=== PATIENT | male | born 1975 | race Caucasian/White ===

== ENCOUNTER 2016-11-23 19:02 | Inpatient (IN) ==
[2016-11-23 19:34] LABS: MANUAL DIFF NEEDED? NO
[2016-11-23 19:37] LABS: BASO% 0.2 % (0.0-0.8); EOS# 0.04 X1000 (0.0-0.7); EOS% 0.3 % (0.0-10.0); HEMATOCRIT 41.8 % (42.0-52.0); HEMOGLOBIN 14.8 g/dL (14.0-18.0); LYMPH# 1.91 X1000 (1.2-3.4); LYMPH% 15.9 % (20.5-51.1); MCH 31.6 PG (27-31); MCHC 35.4 g/dL (33-37); MCV 89.1 FL (81-99); MONO# 0.81 X1000 (0.11-0.59); MONO% 6.8 % (1.7-9.3); MPV 9.6 FL (7.4-10.4); NEUT% 76.8 % (42.2-75.2); PLT 259 X1000 (130-400); RBC 4.69 XMIL (4.7-6.1)
[2016-11-23] MEDS ORDERED: MORPHINE IV ONE ×2 (20:46→21:53)
[2016-11-23] MEDS ORDERED: NS 1,000 ML IV ONE ×2 (20:46→21:53)
[2016-11-23] MEDS ORDERED: ZOFRAN IV ONE ×2 (20:46→21:53)
[2016-11-23 20:49] LABS: AGAP 16; ALBUMIN 4.4 g/dL (3.5-5.0); ALKALINE PHOSPHATASE 53 U/L (32-122); AMYLASE 260 U/L (20-200); BUN 17 mg/dL (8-22); CALCIUM 9.7 mg/dL (8.8-10.2); CHLORIDE 96 mmol/L (98-107); COSMO 276; GOT 19 U/L (10-34); GPT 28 U/L (10-44); LIPASE 607 U/L (13-60); POTASSIUM 4.1 mmol/L (3.5-5.1); SODIUM 137 mmol/L (136-145); TCO2 25 mmol/L (25-35); TOTAL BILIRUBIN 0.55 mg/dL (0.20-1.00); TOTAL PROTEIN 7.8 g/dL (6.3-8.3)
--- NOTE | 2016-11-23 20:54 | PROVIDER DOCUMENTATION ---
HPI-Abdominal Pain/GI Problem - General Chief Complaint: Abdominal Pain Stated Complaint: ABD PAIN X 1 WEEK, VOMITING Time Seen by Provider: 11/23/16 20:47 Source: patient, family Allergies/Adverse Reactions: Patient Allergies Allergy/AdvReac Type Severity Reaction Status Date / Time cephalexin [From Keflex] AdvReac Unknown Verified 11/23/16 20:38 Home Medications: Home Medication List Medication Instructions Recorded Confirmed Last Taken Type NK [No Home Medications] 11/23/16 11/23/16 Unknown History - History of Present Illness-ABD Nature of Presenting Problems: 41 yom C/O Abd pain and N/V for 8 days. Constipation. Continues to get worse. Pt unable to hardly eat or drink anything for about 5 days. the pain is generalized. Abdominal Pain Onset Location: reports: generalized abdomen Pain Radiation: reports: no radiation Quality of Pain: reports: sharp Severity in ED: reports: moderate Onset/Duration: reports: last week Timing: reports: still present, getting worse Activities at Onset: reports: none Associated Symptoms: reports: constipation, nausea, vomiting Last BM: 1 week ago Dark Stools Present?: reports: none noticed Rectal Bleeding: reports: none # of Diarrhea Episodes: 0 Rectal Pain: reports: none # of Vomiting Episodes: 8 Emesis Description: reports: none Bruising or Bleeding Gums?: No Similar Symptoms Previously?: No Recently seen or treated by another doctor?: No Review of Systems - Adult - REVIEW OF SYSTEMS - ADULT Constitutional: reports: see HPI Eyes: reports: no symptoms reported Ears, Nose, Mouth & Throat: reports: no symptoms reported Cardiovascular: reports: no symptoms reported Respiratory: reports: no symptoms reported Gastrointestinal: reports: see HPI, abdominal pain, constipation, nausea, vomiting Genitourinary: reports: no symptoms reported Musculoskeletal: reports: no symptoms reported Integumentary: reports: no symptoms reported Neurological: reports: no symptoms reported Psychiatric: reports: no symptoms reported Endocrine: reports: no symptoms reported Hematologic/Lymphatic: reports: no symptoms reported Allergic/Immunologic: reports: no symptoms reported All Other Systems: Reviewed and Negative Past History - Adult - PAST MEDICAL HISTORY-ADULT Review of Records: reports: Old Records Reviewed, Nursing Assessment Review, Medications Reviewed, Social history reviewed & non-contributory. Physical Exam-General - PHYSICAL EXAM-ADULT Initial Vital Signs Reviewed: Yes - CONSTITUTIONAL General Appearance: appears well, alert, mild distress (due to pain) - EYES Eyes: PERRL/EOMI, pink conjunctivae - HEAD, EARS, NOSE, MOUTH & THROAT HENMT: normocephalic/atraumatic, moist mucous membranes, normal ENT inspection - NECK Neck: non-tender, full range of motion, supple, normal inspection - RESPIRATORY Respiratory: chest non-tender, lungs clear, normal breath sounds, no pleuratic chest pain, no respiratory distress, no accessory muscle use - CARDIOVASCULAR Cardiovascular: normal peripheral pulses, regular rate, rhythm, no edema, no gallop, no JVD, no murmur - GASTROINTESTINAL (ABDOMEN) Abdominal Exam: normal bowel sounds, soft, no organomegaly, no pulsatile mass, guarding, tenderness. negative: hepatomegaly, spleenomegaly, McBurney's point tenderness, Jones's sign, obturator sign, prominent aortic pulsations, psoas, Rovsing's sign - LYMPHATIC Lymphatic: no adenopathy - MUSCULOSKELETAL Back Exam: normal inspection, no CVA tenderness, no vertebral tenderness Extremity: normal range of motion, non-tender, normal gait, normal inspection, no pedal edema, no calf tenderness, normal capillary refill, pelvis stable Peripheral Pulses: radial (R): 2+, radial (L): 2+, dorsalis-pedis (R): 2+, dorsalis-pedis (L): 2+ - SKIN Integumentary: normal color, normal turgor, warm/dry - NEUROLOGIC Neurologic: grossly normal - PSYCHIATRIC Psych/Mental Status: oriented x 3 Progress - PLAN OF CARE/RESULTS Progress/Plan/Lab Results: Vital Signs - 8 hr 11/23/16 19:15 Temperature 98.1 F Pulse Rate 86 Respiratory Rate 20 Blood Pressure 154/94 O2 Sat by Pulse Oximetry 100 Laboratory Results - last 24 hr 11/23/16 19:21 WBC 11.99 H RBC 4.69 L Hgb 14.8 Hct 41.8 L MCV 89.1 MCH 31.6 H MCHC 35.4 RDW Std Deviation 12.0 Plt Count 259 MPV 9.6 Immature Gran % (Auto) 0.0 Neut % (Auto) 76.8 H Lymph % (Auto) 15.9 L Phillips % (Auto) 6.8 Eos % (Auto) 0.3 Baso % (Auto) 0.2 Immature Gran # (Auto) 0.00 Neut # (Auto) 9.21 H Lymph # (Auto) 1.91 Phillips # (Auto) 0.81 H Eos # (Auto) 0.04 Baso # (Auto) 0.02 Orders Category Date Time Status Saline Loc NOW Care 11/23/16 20:46 Active NPO Diet 11/23/16 19:[address] ABD/PELVIS W/ IV CONT ONLY [CT] Stat Exams 11/23/16 20:45 Ordered AMYLASE [CHEM] Stat Lab 11/23/16 19:21 Received CBC WITH ELECTRONIC DIFF [HEME] Stat Lab 11/23/16 19:21 Completed COMPREHENSIVE METABOLIC PANEL [CHEM] Stat Lab 11/23/16 19:21 Received LIPASE [CHEM] Stat Lab 11/23/16 19:21 Received URINALYSIS W/POSS RFLX CULT-1 [URINALYSIS] Stat Lab 11/23/16 19:28 Uncollected 0.9% Sodium Chloride Inj [Ns] 1,000 ml Med 11/23/16 20:46 Active IV 999 mls/hr Morphine Med 11/23/16 20:46 Discontinued 4 mg IV NOW ONE Ondansetron [Zofran] Med 11/23/16 20:46 Discontinued 4 mg IV NOW ONE Result Diagrams: 11/23/16 19:21 11/23/16 19:21 - CT/MRI 1 CT Study: Abdomen Impression: See EMR Report (1. Findings likely due to duodenitis possible with and ulcer or less likely due to focal pancreatitis involving the head of the pancreas. 2 Mild fatty infiltration of the liver. 3.Constipation 4. 5x9mm nonspecific nodule in the left lower lobe.) - CONSULTS/PCP/HOSPITALIST Notification #1 *Consult/PCP/Hospitalist*: A[place]oto Time Discussed: 21:55 Consult Disposition: Will see in ED, Admit Departure - Departure Date of Disposition Decision: 11/23/16 Time of Disposition Decision: 21:55 DIAGNOSIS: Pancreatitis Qualifiers: Chronicity: acute Pancreatitis type: alcohol induced Acute pancreatitis complication: unspecified Qualified Code(s): K85.20 - Alcohol induced acute pancreatitis without necrosis or infection Disposition: ADMITTED INPATIENT 09 Certified Medical Emergency: Emergent Condition: Stable Referrals and Follow-Ups: None,PCP [Primary Care Provider] - - Critical Care Note This patient required my direct & personal management of CC.: No Attestation - Physician/ TALITA Attestation Patient care was provided by Advanced Practice Provider:: Yes Advanced Practice Provider:: Maicol Martines (Dr. Jones reviewed labs and aware of patient) Advanced Practice Provider documentation review:: The Mid-level provider documentation, treatment plan and medical decision making was reviewed by the physician who agrees with all treatment and medical decision making by the MLP.
[2016-11-23 21:18] LABS: URINE CULTURE NEEDED? NO; URINE MICRO REVIEW NEEDED? NO; URINE SOURCE CLEAN CATCH
--- NOTE | 2016-11-23 21:28 | Diag Imaging Result Doc PS360 ---
EXAM: CT abdomen and pelvis with intravenous contrast HISTORY: Abdomen pain TECHNIQUE: Dose reduction protocol COMPARISON: None. FINDINGS: There is thickening to the duodenum and there are adjacent inflammatory changes. 1 cm hypodense area in the head of the pancreas. No pancreatic calcifications. No other pancreatic abnormality. Normal spleen. Mild fatty infiltration of the liver. Normal gallbladder and adrenal glands. Normal enhancement of the kidneys. No hydronephrosis. Normal aorta. No bowel obstruction. Normal appendix. No abscess. There is stool throughout the colon. The urinary bladder is moderately distended and appears normal. The prostate is not enlarged. IMPRESSION: 1.Findings likely due to duodenitis possibly with an ulcer or less likely due to focal pancreatitis involving the head of the pancreas. 2.Mild fatty infiltration of the liver 3.Constipation 4.5 x 9 mm nonspecific nodule in the left lower lobe. Electronically signed by Esdras Claire 11/23/2016 9:26 PM
[2016-11-23 21:39] LABS: UR EPITHELIAL CELLS <10 /HPF (<10); URINE BACTERIA NEGATIVE /HPF; URINE RBC <10 /HPF (<10); URINE WBC <10 /HPF (<10)
[2016-11-23 21:47] LABS: BILIRUBIN URINE NEGATIVE (NEGATIVE); BLOOD URINE NEGATIVE (NEGATIVE); COLOR YELLOW; GLUCOSE URINE NEGATIVE (NEGATIVE); LEUKOCYTES URINE NEGATIVE (NEGATIVE); NITRITE URINE NEGATIVE (NEGATIVE); PH URINE 8.5; PROTEIN URINE TRACE mg/dL (NEGATIVE); TURBIDITY URINE TURBID (CLEAR); UROBILINOGEN URINE NORMAL (NORMAL)
[2016-11-23] MEDS ORDERED: ATIVAN IV PRN (23:49)
[2016-11-23] MEDS ORDERED: ZOFRAN IV PRN (23:49)
[2016-11-24] MEDS: NS 1,000 ML IV SCH ×3 (00:09→22:37)
[2016-11-24] MEDS: OFIRMEV 1000 MG/ISOTONIC SOLN 1,000 MG/100 ML BOTTLE IV SCH ×3 (00:09→12:20)
[2016-11-24] MEDS: PROTONIX IV SCH ×4 (00:09→23:24)
[2016-11-24] MEDS: SODIUM CHLORIDE 0.9% INJ SCH ×4 (00:10→22:33)
[2016-11-24] MEDS: DULCOLAX PR ONE ×2 (00:10→00:43)
--- NOTE | 2016-11-24 00:19 | HISTORY AND PHYSICAL ---
CHIEF COMPLAINT: Abdominal pain, nausea, vomiting. HISTORY OF PRESENT ILLNESS: Mr. Mcfarland is a 41-year-old male with no known past medical history. He presents to the ER tonight with complaints of abdominal pain for approximately 1 week with nausea and vomiting as well. The patient complains of left upper quadrant pain and left midback pain. He reports that the pain in his abdomen feels as though it goes straight through to his back. He describes this as a burning type pain in nature. He denies any recent over-the- counter medication use such as NSAIDs. He does state that up until last Wednesday approximately 1 week ago that he regularly drank 8-10 beers a day and has so for quite some time. Though he states that since his abdominal pain has started and continued to get worse that he decided to stop drinking. He reports that he has a lot of anxiety and does not take any antianxiety medications though uses alcohol to help with his stress and anxiety. He denies any bloody or coffee-grounds emesis though he does report some melena. The patient states that he has been constipated as well though did have a small bowel movement this morning with melena. Upon further evaluation in the ER the patient was found to have a elevated amylase and lipase. A CT abdomen, pelvis performed which showed findings likely due to duodenitis possibly with an ulcer or less likely due to a focal pancreatitis involving the head of the pancreas. At this time we will admit the patient for further treatment, evaluation of his pancreatitis/ duodenitis. REVIEW OF SYSTEMS: A 12 point review of systems was conducted with the patient. All were negative since the positives mentioned above HPI. PAST MEDICAL HISTORY: Alcohol abuse. PAST SURGICAL HISTORY: Left ankle surgery. SOCIAL HISTORY: Patient denies any history of tobacco use or illicit drug use. Does report up until 1 week ago he drank approximately 8-10 beers a day and has so for quite some time. FAMILY HISTORY: Positive for hypertension and heart disease. ALLERGIES: Patient reports allergies to Keflex. HOME MEDICATIONS: The patient denies any home medications. DIAGNOSTIC DATA: Laboratory results. White blood cell count 11.99, hemoglobin 14.8, hematocrit 41.8, platelet count 259,000. Sodium 137, potassium 4.1, chloride 96, bicarb 25 , BUN 17, creatinine 0.9, calcium is 9.7, total bilirubin is 0.55, GGT is 87, AST 19, ALT 28, alkaline phosphatase is 53, amylase is 260, lipase is 607. Urinalysis was obtained via clean catch, was positive for trace protein and ketones and was otherwise within normal limits. CT abdomen, pelvis with IV contrast shows findings likely due to duodenitis possibly with ulcer or less likely due to focal pancreatitis involving the head of the pancreas. There was mild fatty infiltration of the liver. Also noted was constipation. Also noted was a 5 x 9 mm nonspecific nodule in the left lower lobe. PHYSICAL EXAMINATION: VITAL SIGNS: Temperature 98.1 degrees, heart rate 86, respirations 20, blood pressure 154/94. Oxygen saturation is 100% room air. GENERAL: Mr. Mcfarland is a pleasant 41-year-old male who is resting in the ER stretcher, he is in no acute distress. He was awake, alert able to answer all questions appropriately. HEENT: Head is atraumatic, normocephalic. Pupils are equal, round, reactive to light, were 3 mm bilaterally and brisk. Oral mucosa moist. Oropharynx clear. NECK: Supple. Trachea midline. CARDIOVASCULAR: Patient has normal S1, S2. No murmurs, gallops, or rubs appreciated with a regular rate and rhythm. PULMONARY: Patient has symmetrical chest expansion bilaterally. Lung sounds clear to auscultation bilateral full [place]. ABDOMEN: Soft, nondistended. Patient did have some tenderness noted upon palpation of the left upper quadrant. Bowel sounds were present in all 4 quadrants normoactive. EXTREMITIES: No cyanosis, clubbing, or edema noted. Pulse, motor and sensory were intact in all extremities. Pedal pulses were 3+ bilaterally. INTEGUMENTARY: Patient skin pink, warm, dry, intact. No lesions or sores noted. NEUROLOGICAL: Patient is alert and orient x4. Cranial nerves 2-12 are grossly intact. ASSESSMENT AND PLAN: 1. Pancreatitis. 2. Duodenitis. At this time it is uncertain whether one of these diagnoses is possibly the cause of the other or if they are two separate complications. For treatment of #1 and # 2 we will give the patient IV fluids. He had received a 2 L normal saline bolus in the ER. We will continue his normal saline infusion at 175 mL/h. He has been placed NPO at this time. We will repeat a CBC, CMP, amylase and lipase in the morning. We have also consulted Dr. Pool and will await her evaluation and further recommendations. 3. Possible gastrointestinal bleed. We suspect this could be an upper gastrointestinal bleed given the patient's possible finding of duodenitis with ulcer. We have placed the patient on Protonix 40 mg IV q.24 hours. We have ordered a Hemoccult stool. Will repeat a CBC in the morning and monitor his hemodynamic status closely and await Dr. Pool's evaluation and recommendations. 4. Constipation. We have ordered a Dulcolax suppository for the patient. 5. Alcohol abuse. Patient reports this time that he has quit drinking and does not have on any plans to start back drinking again. He reports that his last drink was approximately 1 week ago, though we have ordered Ativan p.r.n. for agitation/ alcohol withdrawal if needed and will closely monitor him for any signs of alcohol withdrawal. 6. The patient placed on medical floor with telemetry, he will have vital signs q.6 hours. We will do strict intake and output. DVT prophylaxis was provided with SCDs. Other orders, recommendations pending hospital course, diagnostic studies and physical evaluation. Dictated by CAROLINE He for Ye Larosn MD Pt seen by me and case discussed with SPORTS TEAM MANAGER. cc: Ye Larson MD MTDD
[2016-11-24] MEDS ORDERED: DULCOLAX PR ONE (00:45)
[2016-11-24] MEDS: MORPHINE IV PRN ×5 (02:23→23:26)
[2016-11-24] MEDS: SODIUM CHLORIDE 0.9% INJ PRN ×2 (02:46→21:16)
[2016-11-24] MEDS: PHENERGAN IV PRN ×3 (02:46→21:16)
[2016-11-24 06:31] LABS: MANUAL DIFF NEEDED? NO
[2016-11-24 06:38] LABS: BASO% 0.1 % (0.0-0.8); EOS# 0.04 X1000 (0.0-0.7); EOS% 0.4 % (0.0-10.0); HEMATOCRIT 38.5 % (42.0-52.0); HEMOGLOBIN 13.3 g/dL (14.0-18.0); LYMPH# 1.61 X1000 (1.2-3.4); LYMPH% 14.6 % (20.5-51.1); MCH 31.5 PG (27-31); MCHC 34.5 g/dL (33-37); MCV 91.2 FL (81-99); MONO# 0.82 X1000 (0.11-0.59); MONO% 7.5 % (1.7-9.3); MPV 9.9 FL (7.4-10.4); NEUT% 77.4 % (42.2-75.2); PLT 239 X1000 (130-400); RBC 4.22 XMIL (4.7-6.1)
[2016-11-24 06:47] LABS: INR 1.04; PROTIME 10.9 Seconds (9.2-11.7)
--- NOTE | 2016-11-24 06:53 | EKG Report ---
Test Performed on : 11/24/2016 06:23:58 AM Test Reason : Pancreatitis/Duodenitis, Poss. Surgical Pt Blood Pressure : / mmHG Vent. Rate : 059 BPM Atrial Rate : 059 BPM P-R Int : 130 ms QRS Dur : 092 ms QT Int : 436 ms P-R-T Axes : 061 066 057 degrees QTc Int : 431 ms Sinus bradycardia. Otherwise normal ECG No previous ECGs available Confirmed by Kushal OGLESBY, Partha Granados ([id number]) on 11/24/2016 6:23:01 PM
[2016-11-24 07:19] LABS: AGAP 12; ALBUMIN 3.9 g/dL (3.5-5.0); ALKALINE PHOSPHATASE 46 U/L (32-122); AMYLASE 383 U/L (20-200); BUN 12 mg/dL (8-22); CALCIUM 8.3 mg/dL (8.8-10.2); CHLORIDE 102 mmol/L (98-107); COSMO 278; GOT 15 U/L (10-34); GPT 23 U/L (10-44); LIPASE 779 U/L (13-60); POTASSIUM 4.2 mmol/L (3.5-5.1); SODIUM 139 mmol/L (136-145); TCO2 25 mmol/L (25-35); TOTAL BILIRUBIN 0.56 mg/dL (0.20-1.00); TOTAL PROTEIN 6.6 g/dL (6.3-8.3)
--- NOTE | 2016-11-24 14:50 | PROGRESS NOTE ---
DATE: 11/24/2016 SUBJECTIVE: This patient states that he is feeling a little bit better. He is still having some kind of tenderness at the level of the epigastric area. He denies nausea, vomiting, diarrhea, constipation at this moment. OBJECTIVE: Vital Signs: Temperature 98.7 degrees, pulse 69, respiratory rate 16, blood pressure 124/75, oxygen saturation 96% on room air. HEENT: Head normocephalic. No trauma. PERRLA. Neck: Supple. No JVD. No masses. Central trachea. Chest: Clear to auscultation. No wheezing. No rales. Cardiovascular: Regular rhythm and rate. No murmurs. Abdomen: Soft, mild tenderness to palpation at the level of the epigastric area. No signs of peritoneal irritation. Extremities: No edema. No clubbing. No cyanosis. Neurological: The patient is alert and oriented x3. No focal neurological deficits. LABORATORY: WBC 10.9, hemoglobin 13.3, hematocrit 38.5, platelets 239,000. Sodium 139, potassium 4.2, chloride 102, bicarbonate 25, BUN 12, creatinine 0.8, glucose 104, calcium 83, AST 15, ALT 23, alkaline phosphatase 46, amylase 383, and lipase 779. ASSESSMENT AND PLAN: 1. Pancreatitis. This patient states that the pain is getting better. He is on IV fluids and nothing per oral. We will continue with supportive care at this moment. 2. Duodenitis. Continue with the IV fluids and proton pump inhibitor. Dr. Pool from Gastroenterology Department has been consulted. We will follow her recommendations. 3. Possible gastrointestinal bleed. Continue with proton pump inhibitor. Pending Gastroenterology evaluation. 4. Constipation. Continue with the same management. 5. Alcohol abuse. Apparently this patient quit drinking a few days ago. We will keep this patient on Ativan p.r.n. for agitation/alcohol withdrawal. We will continue to follow this patient. 6. Deep venous thrombosis prophylaxis. Continue with a Sequential Compression Devices. 7. Gastroenterology prophylaxis. Continue with proton pump inhibitors. cc: James Castillo MD
[2016-11-24] MEDS: ATIVAN IV PRN (17:50)
--- NOTE | 2016-11-24 21:46 | CONSULTATION ---
DATE OF CONSULTATION: 11/24/2016 REFERRING PHYSICIAN: Ye Larson M.D. PRIMARY CARE PROVIDER: None. HISTORY OF PRESENT ILLNESS: The patient is a 41-year-old white male who has essentially no past medical history. The patient states that he has consumed 8-10 beers per day for approximately 20 years. Approximately 1 week ago, he developed epigastric pain associated with nausea, vomiting and black stools. Because of the persistent pain, he presented to the emergency room for evaluation. He was found to have pancreatitis on CT scan with duodenitis and a possible duodenal ulcer. Since admission, the patient states that the pain has improved considerably. He also reports resolution of the black tarry diarrheal stools. He continues to have epigastric pain but states that it is significantly better. Because of the acute pancreatitis, duodenitis and possible duodenal ulcer, we were asked to participate in his care. PAST MEDICAL HISTORY: 1. ETOH abuse. 2. Duodenitis. 3. Duodenal ulcer on current CT scan. PAST SURGICAL HISTORY: Left ankle surgery. SOCIAL HISTORY: The patient smokes intermittently but not on a consistent basis. He smokes 3-4 cigarettes per month. He drinks about 8-10 beers per day and has done so for approximately 20 years. He has used marijuana in the past but denies other illicit drug use. FAMILY HISTORY: Positive for hypertension and heart disease. MEDICATION ALLERGIES: Keflex. HOME MEDICATIONS: None. PHYSICAL EXAMINATION: General: On examination, he is in no acute distress. Vital Signs: His blood pressure is 126/78, pulse 61, respirations 16, temperature of 98.6 degrees. HEENT: Negative for jaundice. His conjunctivae are pale. His sclerae are anicteric. His oropharyngeal mucosal membranes are moist. Pulmonary Examination: Lungs are clear to auscultation with normal respiratory effort. Cardiovascular Examination: Reveals regular rate and rhythm with no murmurs, gallops, or rubs. Abdominal Examination: Reveals normoactive bowel sounds. The abdomen is soft with mild to moderate right upper quadrant and epigastric tenderness. There is no rebound or guarding. Extremities: Bilaterally are negative for cyanosis, clubbing, or edema. OBJECTIVE DATA: Reveals hemoglobin of 13.3 with hematocrit of 38.5, and a white count of 10.99. He has 239,000 platelets. PT is 10.9 with an INR of 1.04. Sodium is 139, potassium 4.2, chloride 102, CO2 of 25, BUN 12, creatinine 0.8 with a glucose 104. Calcium is 8.3, total bilirubin 0.56, AST 15, ALT 23, alkaline phosphatase 46, total protein 6.6, albumin 3.9, amylase 383 and lipase 779. IMPRESSION: 1. Acute pancreatitis. 2. Probable duodenal ulcer. 3. Duodenitis. 4. Melena. RECOMMENDATIONS: 1. Based on the operating room schedule, we will place patient on the schedule for EGD on . 2. In the interim, I will continue Protonix 40 mg IV q.12 hours. If there is bleeding, begin a drip. 3. Begin Carafate suspension 1 g p.o. 4 times a day. 4. Monitor serial hemoglobin and hematocrit. 5. Continue supportive care for his acute pancreatitis. 6. Additional recommendations to follow based on his clinical course. cc: MD Ye Landin MD Omar J. Sosa-Chirinos, MD MTDD
[2016-11-24] MEDS: CARAFATE LIQUID PO SCH (22:33)
[2016-11-25] MEDS: NS 1,000 ML IV SCH ×4 (02:19→17:30)
[2016-11-25] MEDS: CARAFATE LIQUID PO SCH ×4 (05:21→23:16)
[2016-11-25 06:01] LABS: MANUAL DIFF NEEDED? NO
[2016-11-25 06:07] LABS: BASO% 0.3 % (0.0-0.8); EOS# 0.28 X1000 (0.0-0.7); EOS% 3.8 % (0.0-10.0); HEMATOCRIT 38.5 % (42.0-52.0); HEMOGLOBIN 13.2 g/dL (14.0-18.0); LYMPH# 2.11 X1000 (1.2-3.4); LYMPH% 28.9 % (20.5-51.1); MCH 31.7 PG (27-31); MCHC 34.3 g/dL (33-37); MCV 92.3 FL (81-99); MONO# 0.78 X1000 (0.11-0.59); MONO% 10.7 % (1.7-9.3); MPV 9.6 FL (7.4-10.4); NEUT% 56.3 % (42.2-75.2); PLT 221 X1000 (130-400); RBC 4.17 XMIL (4.7-6.1)
[2016-11-25 06:50] LABS: AGAP 9; ALBUMIN 3.9 g/dL (3.5-5.0); ALKALINE PHOSPHATASE 46 U/L (32-122); BUN 11 mg/dL (8-22); CALCIUM 8.7 mg/dL (8.8-10.2); CHLORIDE 104 mmol/L (98-107); COSMO 277; GOT 13 U/L (10-34); GPT 18 U/L (10-44); HDL 27 mg/dL (35-55); LDL 60 mg/dL; POTASSIUM 4.3 mmol/L (3.5-5.1); SODIUM 139 mmol/L (136-145); TCO2 26 mmol/L (25-35); TOTAL BILIRUBIN 0.58 mg/dL (0.20-1.00); TOTAL PROTEIN 6.6 g/dL (6.3-8.3); TRIGLYCERIDES 124 mg/dL (39-160); VLDL 25 mg/dL
--- NOTE | 2016-11-25 11:46 | PROGRESS NOTE ---
DATE: 11/25/2016 SUBJECTIVE: This patient states that he is feeling a little bit better. Mild pain at the level of the epigastric area. He denies nausea, vomiting, diarrhea, constipation at this moment. OBJECTIVE: Vital Signs: Temperature 98.5 degrees, pulse 58, respiratory rate 16, blood pressure 118/73, O2 saturation 100% on room air. HEENT: Head normocephalic. No trauma. PERRLA. Neck: Supple. No JVD. No masses. Central trachea. Chest: Clear to auscultation. No wheezing. No rales. Cardiovascular: RRR. No murmurs. Abdomen: Soft. Mild tenderness to palpation at the level of the epigastric area. Extremities: No edema. No clubbing. No cyanosis. Neurological: The patient is alert and oriented x3. No focal deficits. LABORATORY DATA: WBC 7.3, hemoglobin 13.2, hematocrit 38.5, platelets 221,000. Sodium 139, potassium 4.3, chloride 104, bicarbonate 26, BUN 11, creatinine 0.8, glucose 92, calcium 8.7. Albumin 3.9. ASSESSMENT AND PLAN: 1. Pancreatitis. This patient is getting better. I will continue with intravenous fluids and nothing per oral. Continue with supportive care and pain medication. 2. Duodenitis. This patient has been scheduled for upper endoscopy tomorrow by Dr. Pool. 3. Possible gastrointestinal bleed. Again, he will be scoped tomorrow, and I will continue with proton pump inhibitors. 4. Constipation. Continue with the same management. 5. Alcohol abuse. Apparently, this patient quit drinking a few days ago. We will keep this patient on Ativan as needed for agitation or withdrawal. We will continue to follow this patient closely. 6. Deep vein thrombosis prophylaxis. Continue with sequential compression devices. 7. Gastrointestinal prophylaxis. Continue with proton pump inhibitors. cc: James Castillo MD
[2016-11-25] MEDS: PROTONIX IV SCH ×2 (11:51→23:15)
[2016-11-25] MEDS: SODIUM CHLORIDE 0.9% INJ SCH ×2 (11:51→23:15)
[2016-11-25] MEDS: MORPHINE IV PRN (12:05)
[2016-11-25] MEDS: ATIVAN IV PRN ×2 (17:29→21:29)
--- NOTE | 2016-11-25 20:35 | PROGRESS NOTE ---
DATE: 11/25/2016 HISTORY OF PRESENT ILLNESS: Patient states that he has had an interval reduction in abdominal pain since he was placed on Protonix and Carafate. He is feeling better and actually has an appetite. He denies blood in his stool, abdominal pain, nausea, vomiting. He awaits an EGD in the morning based on the CT scan which suggested the presence of a duodenal ulcer. OBJECTIVE: General: On exam, he is in no acute distress. Vital Signs: His blood pressure is 127/78, pulse 63, respiration 14, temperature of 97.6 degrees. Abdomen: Soft and nondistended. OBJECTIVE DATA: Reveals a hemoglobin of 13.2 with hematocrit of 38.5, and a white count of 7.30. He has 221,000 platelets. Sodium is 139, potassium 4.3, chloride 104, CO2 26, BUN 11, creatinine 0.8 with a glucose 92. Calcium is 8.7, total bilirubin 0.58, AST 13, ALT 18, alkaline phosphatase 46, CRP of 12.53, total protein 6.6, and albumin of 3.9. IMPRESSION: 1. Acute pancreatitis. 2. Duodenitis. 3. Probable duodenal ulcer. 4. Alcohol liver disease. RECOMMENDATION: 1. Continue Protonix. 2. Continue Carafate. 3. EGD in the morning. We discussed consent and his questions were addressed. 4. He may have clear liquids tonight but should remain NPO 6 hours prior to his endoscopy. 5. Additional recommendations to follow based on his clinical course. cc: MD James Landin MD MTDD
[2016-11-26] MEDS: CARAFATE LIQUID PO SCH ×3 (04:17→17:24)
[2016-11-26] MEDS: NS 1,000 ML IV SCH ×2 (05:51→15:41)
[2016-11-26 06:42] LABS: MANUAL DIFF NEEDED? NO
[2016-11-26 06:52] LABS: BASO% 0.5 % (0.0-0.8); EOS# 0.43 X1000 (0.0-0.7); EOS% 7.4 % (0.0-10.0); HEMOGLOBIN 13.2 g/dL (14.0-18.0); LYMPH# 1.61 X1000 (1.2-3.4); LYMPH% 27.8 % (20.5-51.1); MCH 31.5 PG (27-31); MCHC 34.7 g/dL (33-37); MCV 90.7 FL (81-99); MONO# 0.61 X1000 (0.11-0.59); MONO% 10.5 % (1.7-9.3); MPV 9.8 FL (7.4-10.4); NEUT% 53.8 % (42.2-75.2); PLT 220 X1000 (130-400); RBC 4.19 XMIL (4.7-6.1)
[2016-11-26 07:06] LABS: AGAP 11; BUN 12 mg/dL (8-22); CALCIUM 8.3 mg/dL (8.8-10.2); CHLORIDE 104 mmol/L (98-107); COSMO 279; POTASSIUM 4.3 mmol/L (3.5-5.1); SODIUM 140 mmol/L (136-145); TCO2 25 mmol/L (25-35)
[2016-11-26] MEDS: MORPHINE IV PRN ×2 (07:48→11:00)
[2016-11-26] MEDS: SODIUM CHLORIDE 0.9% INJ SCH (11:00)
[2016-11-26] MEDS: PROTONIX IV SCH (11:00)
--- NOTE | 2016-11-26 14:45 | PROGRESS NOTE ---
DATE: 11/26/2016 SUBJECTIVE: This patient states that he is feeling better but he is still complaining of mild epigastric pain. He denies nausea, vomiting, diarrhea, constipation at this moment. OBJECTIVE: Vital Signs: Temperature 98.6 degrees, pulse 70, respiratory rate 16, blood pressure 124/80, oxygen saturation 98 on room air. HEENT: Head normocephalic. No trauma. PERRLA. Neck: Supple. No JVD. No masses. Central trachea. Chest: Clear to auscultation. No wheezing. No rales. Cardiovascular: RRR. No murmurs. No gallops. No rubs. Abdomen: Soft. Mild tenderness to palpation at the level of the epigastric area. No signs of peritoneal irritation. No rebound. Extremities: No edema. No clubbing. No cyanosis. Neurological: The patient is alert and oriented x3. No focal neurological deficits. LABORATORY: WBC 5.7, hemoglobin 13.2, hematocrit 38, platelet 220,000. Sodium 140, potassium 4.3, chloride 104, bicarbonate 25, BUN 12, creatinine 0.8, glucose 92, calcium 8.3. ASSESSMENT AND PLAN: 1. Pancreatitis. This patient feels better compared with admission. I will continue with the IV fluids and pain medications. Continue with supportive care. 2. Duodenitis. This patient has been scheduled today for an upper endoscopy. We will wait for the results. 3. Possible gastrointestinal bleed. Again, he is getting an upper endoscopy today. Continue with PPIs. 4. Constipation. Continue with the same management. 5. Alcohol abuse. Apparently this patient quit drinking a few days ago. I will keep this patient on Ativan as needed for agitation or withdrawal. We will continue to follow this patient closely. 6. Deep vein thrombosis prophylaxis. Continue with SCDs. 7. Gastrointestinal prophylaxis. He is on PPIs. cc: James Castillo MD
[2016-11-26] MEDS ORDERED: DIPRIVAN 1% ONE (17:03)
[2016-11-26] MEDS ORDERED: PROTONIX 80 MG in NS 80 ML IV ONE (17:30)
[2016-11-26 17:55] LABS: MANUAL DIFF NEEDED? NO
[2016-11-26 17:57] LABS: BASO% 0.2 % (0.0-0.8); EOS# 0.19 X1000 (0.0-0.7); HEMATOCRIT 35.6 % (42.0-52.0); HEMOGLOBIN 12.2 g/dL (14.0-18.0); IMM GRAN# 0.02 X1000 (0.0-0.04); IMM GRAN% 0.2 % (0.0-0.5); LYMPH# 1.28 X1000 (1.2-3.4); LYMPH% 13.6 % (20.5-51.1); MCHC 34.3 g/dL (33-37); MCV 90.4 FL (81-99); MONO# 0.66 X1000 (0.11-0.59); MPV 9.2 FL (7.4-10.4); PLT 225 X1000 (130-400); RBC 3.94 XMIL (4.7-6.1)
[2016-11-26] MEDS ORDERED: PROTONIX 80 MG in NS 80 ML IV SCH (18:00)
[2016-11-26 18:06] LABS: INR 1.04; PROTIME 10.9 Seconds (9.2-11.7)
--- NOTE | 2016-11-26 18:14 | OPERATIVE NOTE ---
PROCEDURE DATE: 11/26/2016 REFERRING PHYSICIAN: James Castillo M.D. INDICATION FOR PROCEDURE: 1. Melena. 2. Duodenal ulcer on CT scan. 3. Duodenitis. 4. Acute pancreatitis. PROCEDURE PERFORMED: Esophagogastroduodenoscopy with control of bleeding. CONSENT: Informed consent was obtained from the patient prior to the procedure. The risks, benefits, and alternatives were discussed. MEDICATION: The patient received monitored anesthesia care. PERFORMING PHYSICIAN: Erin Pool M.D. ASSISTANTS: 1. Karen Ruiz RN. 2. Shannon Murry RN. 3. Joseph Poe RN. 4. Luz Leavitt CRNA. 5. Rodney Varner M.D. (anesthesia). 6. Student observer: Clary Macias, MS 3. COMPLICATIONS: There were no complications. ESTIMATED BLOOD LOSS: 2-3 mL as the patient was actively bleeding at the time of insertion of the scope. There were no procedural related correction there was no procedure related blood loss per se. SPECIMENS REMOVED: None. FINDINGS: After sedation was achieved, the upper endoscope was inserted to the third portion of the duodenum. The hypopharynx appeared endoscopically normal. The tubular esophagus was normal to the distal esophagus. There was an inflammatory polyp at the GE junction which remains intact. The GE junction was measured at 40 cm from the incisors. There is a hiatal hernia that spanned from 40-44 cm. In the gastric lumen, there was mild gastritis in the antrum and body. On retroflexed view, the fundus appeared endoscopically normal. The pylorus was patent and appeared normal. In the duodenal bulb, there was severe duodenitis with luminal compromise. In the transition between the first and 2nd portion of the duodenum, there was an ulcer with active bleeding. One vessel was cauterized using black wire cautery. There were 2 smaller vessels that were still actively oozing which did not stop despite attempts to cauterize. Due to the ongoing bleeding, we are unable to visualize the ulcer base. The surrounding mucosa was hyperemic and bled easily with contact. We were able to traverse the ulcerated tissue into the third portion of the duodenum, which appeared grossly normal except for the visualized bleeding. We did not have a clear view of the ampulla of Vater. The scope was retracted into the first curve of the duodenum. We attempted to place a clip on the actively oozing blood vessel. However, the clip did not dislodge successfully. The procedure was terminated and the lumen was decompressed. The patient tolerated the procedure without difficulty. IMPRESSION: 1. Inflammatory polyp at the distal esophagus. 2. Hiatal hernia. 3. Mild gastritis. 4. Severe duodenitis. 5. An actively bleeding ulcer in the duodenal bulb, in the transition between the first and second portion of the duodenum. RECOMMENDATION: 1. Begin Protonix drip and consider oral Carafate once endoscopic intervention is complete. 2. Check CBC and PT/INR now. 3. I recommend transfer to [facility] for possible intervention by Interventional Radiology and/or GI. The ulcer is in the anterior curve of the duodenum raising concern for a large vessel. 4. I spoke with Dr. Vincenzo Thomason, who is aware the patient is actively bleeding in the event that there is an acute change in his clinical status while he awaits transfer. 5. We will have the patient return to our office 2-3 weeks post discharge for interval reassessment and ongoing care. cc: MD James Landin MD MTDD
[2016-11-26 19:34] VITALS: BP 120/66
[2016-11-27] MEDS ORDERED: NS 1,000 ML ONE (08:24)
[2016-11-27] MEDS ORDERED: XYLOCAINE-MPF 2% ONE (08:24)
[2016-11-29] MEDS ORDERED: PROTONIX IV SCH (17:09)
--- NOTE | 2016-12-01 13:33 | DISCHARGE SUMMARY ---
ADMISSION DATE: 11/23/2016 DISCHARGE DATE: 11/26/2016 Patient was transferred to [facility] by Dr. Erin Pool. CONSULTATIONS: Dr. Erin Pool. PERTINENT PROCEDURES: Abdomen and pelvis CT showed findings likely due to duodenitis, possibly an ulcer, or less likely due to focal pancreatitis involving the head of the pancreas, mild fatty infiltration of the liver, constipation, a 5 x 9 mm nonspecific nodule of the left lower lobe. EGD performed by Dr. Pool on 11/26/2016 for control of bleeding, for which patient was transferred to [facility]. DISCHARGE DIAGNOSES: 1. Pancreatitis. Patient was clinically improving. 2. Duodenitis. 3. Status post esophagogastroduodenoscopy by Dr. Pool that showed severe duodenitis and an actively bleeding ulcer in the duodenal bulb, in the transition between the 1st and 2nd portion of the duodenum. They were unable to stop the bleeding, so patient was transferred to [facility] for possible intervention by Interventional Radiology and/or Gastroenterology. 4. Gastrointestinal bleed. The patient was transferred to [facility]. 5. Constipation. 6. Alcohol abuse. Abstinence was discussed with the patient daily as well as watched for delirium tremens. HOSPITAL COURSE: Mr. Mcfarland is a 41-year-old male with a past medical history of alcohol abuse who presented to the ED with complaint of abdominal pain for 1 week with nausea and vomiting, left upper quadrant pain, left midback pain, burning in nature. The patient stated up until a week before his admission he drink 8-10 beers a day and has done so for quite some time. He stated his abdominal pain continued to get worse, so he decided to stop drinking. He had stopped drinking for 1 week. He did report that he has a lot anxiety, but he does not take any anti-anxiety medication, though he does use alcohol to help with his stress relief. The patient was evaluated in the ED, found to have an elevated amylase and lipase. CT of the abdomen and pelvis was performed that showed findings likely due to duodenitis, possibly an ulcer or, less likely, due to focal pancreatitis involving the head of the pancreas. Patient was admitted with a GI consult, started on IV PPI, monitored serial hemoglobin and hematocrit as well as antiemetic and pain relief. He was given Dulcolax suppositories for his constipation. He was monitored closely for any alcohol withdrawal. The patient did undergo an EGD with Dr. Pool as well as control of bleeding. She was able to successfully cauterize 1 vessel with black wire cautery. She attempted to place a clip on the actively oozing blood vessel, but the clip did not dislodge successfully, so the procedure was terminated and the patient was transferred to [facility] for possible intervention by IR and/or GI, and will follow up with Dr. Pool in 2-3 weeks post discharge for interval reassessment of ongoing care. Again, patient was transferred to [facility]. DISPOSITION: Transferred to [facility] by Dr. Pool and will follow up with her in 2-3 weeks. Dictated by CAROLINE Oglesby for James Castillo MD cc: James Castillo MD
== END 2016-11-26 23:10 | disposition short-term general hospital (02) ==
LOC: ED 19:02 → 4N 22:47 → SUATTDRO 22:47
PROVIDERS: ATTEND Internal Medicine
PROC: EN.HEAT (2016-11-26 16:20)

== ENCOUNTER 2016-12-16 17:03 | Inpatient (IN) ==
[2016-12-16 17:25] LABS: MANUAL DIFF NEEDED? NO
[2016-12-16] MEDS ORDERED: NS 1,000 ML IV ONE ×2 (17:54→18:38)
[2016-12-16 17:55] LABS: BASO% 0.1 % (0.0-0.8); EOS# 0.07 X1000 (0.0-0.7); EOS% 0.7 % (0.0-10.0); HEMATOCRIT 41.9 % (42.0-52.0); HEMOGLOBIN 14.5 g/dL (14.0-18.0); LYMPH% 15.1 % (20.5-51.1); MCH 30.8 PG (27-31); MCHC 34.6 g/dL (33-37); MONO# 0.36 X1000 (0.11-0.59); MONO% 3.6 % (1.7-9.3); MPV 10.1 FL (7.4-10.4); NEUT% 80.5 % (42.2-75.2); PLT 242 X1000 (130-400); RBC 4.71 XMIL (4.7-6.1)
[2016-12-16] MEDS ORDERED: OFIRMEV 1000 MG/ISOTONIC SOLN 1,000 MG/100 ML BOTTLE IV ONE (17:55)
[2016-12-16] MEDS ORDERED: ZOFRAN IV ONE (17:55)
[2016-12-16] MEDS ORDERED: MORPHINE IV ONE (17:55)
[2016-12-16 18:25] LABS: AGAP 17; ALBUMIN 4.4 g/dL (3.5-5.0); ALKALINE PHOSPHATASE 68 U/L (32-122); AMYLASE 302 U/L (20-200); BUN 18 mg/dL (8-22); CALCIUM 9.2 mg/dL (8.8-10.2); CHLORIDE 103 mmol/L (98-107); COSMO 284; GOT 20 U/L (10-34); GPT 31 U/L (10-44); LIPASE 656 U/L (13-60); SODIUM 141 mmol/L (136-145); TCO2 21 mmol/L (25-35); TOTAL PROTEIN 7.4 g/dL (6.3-8.3)
--- NOTE | 2016-12-16 18:38 | PROVIDER DOCUMENTATION ---
This chart was entered by Raul Sosa Scribe, acting as scribe for Angel Campbell MD. HPI-Abdominal Pain/GI Problem - General Chief Complaint: Abdominal Pain Stated Complaint: ABD PAIN Time Seen by Provider: 12/16/16 17:44 Source: patient Allergies/Adverse Reactions: Patient Allergies Allergy/AdvReac Type Severity Reaction Status Date / Time cephalexin [From Keflex] AdvReac Unknown Verified 12/16/16 17:15 Home Medications: Home Medication List Medication Instructions Recorded Confirmed Last Taken Type Omeprazole [Prilosec] 40 mg PO DAILY 12/16/16 12/16/16 12/16/16 History Sucralfate [Carafate] 1 gm PO 4XDAY 12/16/16 12/16/16 12/16/16 History - History of Present Illness-ABD Nature of Presenting Problems: Patient is a 41 y/o M that presents to the Er with abdominal pain( epigastric) with n/v that began this am. No diarrhea,fever, or cough. Denies constipation. patient has history of pancreatitis and ulcers, admitted earlier this month for same. Quit drinking Abdominal Pain Onset Location: reports: LUQ, epigastric Pain Radiation: reports: no radiation Quality of Pain: reports: dull, sharp Severity in ED: reports: moderate Onset/Duration: reports: abrupt, this morning Timing: reports: still present, constant Activities at Onset: reports: none Modifying Factors: improves with: nothing Associated Symptoms: reports: back/neck pain, loss of appetite, nausea, vomiting . denies: chest pain, constipation, diarrhea, dizziness, fever/chills, genitourinary problems, shortness of breath Similar Symptoms Previously?: Yes Recently seen or treated by another doctor?: Yes Review of Systems - Adult - REVIEW OF SYSTEMS - ADULT Constitutional: denies: chills, fever Eyes: denies: decreased vision, blurred vision, double vision Ears, Nose, Mouth & Throat: denies: ear pain, sinus problem, throat pain, throat swelling Cardiovascular: denies: chest pain, palpitations, syncope Respiratory: denies: cough, shortness of breath, wheezing Gastrointestinal: reports: abdominal pain, nausea, poor appetite, vomiting. denies: constipation, diarrhea, rectal bleeding Genitourinary: denies: dysuria, frequency, hematuria Musculoskeletal: reports: back pain. denies: joint pain, neck pain Integumentary: reports: no symptoms reported Neurological: reports: no symptoms reported Psychiatric: reports: no symptoms reported Endocrine: reports: no symptoms reported Hematologic/Lymphatic: reports: no symptoms reported Allergic/Immunologic: reports: no symptoms reported All Other Systems: Reviewed and Negative Past History - Adult - PAST MEDICAL HISTORY-ADULT Review of Records: reports: Old Records Reviewed, Nursing Assessment Review, Medications Reviewed Gastrointestinal: reports: pancreatitis, ulcer - PRIOR SURGERIES/PROCEDURES Surgical/Procedure History: reports: none - IMMUNIZATION STATUS Childhood Immunizations: See Nurse Assessment Flu Vaccine: See Nurse Assessment - FAMILY HISTORY Family History: reviewed, not pertinent - SOCIAL HISTORY Smoking: non-smoker Substance Use: none presently/history of abuse Alcohol Use Frequency: sober (former use) Living Situation: family Physical Exam-General - PHYSICAL EXAM-ADULT Initial Vital Signs Reviewed: Yes - CONSTITUTIONAL General Appearance: alert, no apparent distress - EYES Eyes: PERRL/EOMI, pink conjunctivae - HEAD, EARS, NOSE, MOUTH & THROAT HENMT: normocephalic/atraumatic, moist mucous membranes, normal ENT inspection - NECK Neck: full range of motion, normal inspection. negative: lymphadenopathy - RESPIRATORY Respiratory: chest non-tender, lungs clear, normal breath sounds, no respiratory distress, no accessory muscle use - CARDIOVASCULAR Cardiovascular: regular rate, rhythm, no edema, no murmur - GASTROINTESTINAL (ABDOMEN) Abdominal Exam: normal bowel sounds, soft, no organomegaly, no pulsatile mass, tenderness (mild epigastric). negative: distended, guarding, rigid - MUSCULOSKELETAL Back Exam: no CVA tenderness, no vertebral tenderness Extremity: normal range of motion, normal inspection, no pedal edema - SKIN Integumentary: normal color, warm/dry - NEUROLOGIC Neurologic: locomotive engineer II-XII nml as tested, no motor/sensory deficits - PSYCHIATRIC Psych/Mental Status: normal mood/affect, normal thought content, normal thought process, oriented x 3 Progress - PLAN OF CARE/RESULTS Progress/Plan/Lab Results: Vital Signs - 8 hr 12/16/16 17:11 Temperature 98.7 F Pulse Rate 90 Respiratory Rate 20 Blood Pressure 144/87 O2 Sat by Pulse Oximetry 97 Orders Category Date Time Status NPO Diet 12/16/16 17:17 Active AMYLASE [CHEM] Stat Lab 12/16/16 17:17 Received CBC WITH ELECTRONIC DIFF [HEME] Stat Lab 12/16/16 17:17 Results COMPREHENSIVE METABOLIC PANEL [CHEM] Stat Lab 12/16/16 17:17 Received LIPASE [CHEM] Stat Lab 12/16/16 17:17 Received Result Diagrams: 12/16/16 17:17 12/16/16 17:17 Departure - Departure Date of Disposition Decision: 12/16/16 Time of Disposition Decision: 18:35 DIAGNOSIS: Pancreatitis Qualifiers: Pancreatitis type: unspecified pancreatitis type Acute pancreatitis complication: no infection or necrosis Disposition: ADMITTED INPATIENT 09 Certified Medical Emergency: Emergent Condition: Good Referrals and Follow-Ups: None,PCP [Primary Care Provider] - - Critical Care Note This patient required my direct & personal management of CC.: No This chart was documented by the indicated scribe, (Raul Sosa, Scribe) and accurately reflects the services I performed and decisions made by me, Angel Campbell MD, as attested by the provider's signature.
[2016-12-16 18:58] LABS: URINE CULTURE NEEDED? NO; URINE MICRO REVIEW NEEDED? NO; URINE SOURCE CLEAN CATCH
[2016-12-16 19:00] LABS: UR EPITHELIAL CELLS <10 /HPF (<10); URINE BACTERIA NEGATIVE /HPF; URINE RBC <10 /HPF (<10); URINE WBC <10 /HPF (<10)
[2016-12-16 19:01] LABS: BILIRUBIN URINE NEGATIVE (NEGATIVE); BLOOD URINE NEGATIVE (NEGATIVE); COLOR YELLOW; GLUCOSE URINE NEGATIVE (NEGATIVE); LEUKOCYTES URINE NEGATIVE (NEGATIVE); NITRITE URINE NEGATIVE (NEGATIVE); PH URINE 6.5; PROTEIN URINE 50 mg/dL (NEGATIVE); SP GRAVITY URINE 1.037; TURBIDITY URINE HAZY (CLEAR); UROBILINOGEN URINE NORMAL (NORMAL)
[2016-12-16] MEDS: MORPHINE IV PRN (20:25)
[2016-12-16] MEDS ORDERED: LOVENOX SUBQ SCH (23:25)
[2016-12-16] MEDS: CARAFATE PO SCH (23:37)
[2016-12-17] MEDS: MORPHINE IV PRN ×4 (01:36→10:40)
--- NOTE | 2016-12-17 05:12 | HISTORY AND PHYSICAL ---
CHIEF COMPLAINT: Abdominal pain. HISTORY OF PRESENT ILLNESS: Mr. Mcfarland is a 41-year-old male who was recently admitted on 11/23/2016 for alcoholic pancreatitis. His only past medical history is alcohol abuse which he apparently stopped drinking roughly 1 week before his previous admission. He was having 8-10 beers a day and had drank for quite some time. He reportedly left the hospital, did not start drinking again. He also had a GI bleed during his last admission which was found to be mild bleeding secondary to an ulcer. He was started on a PPI and Carafate and discharged home. He returned today related to increased abdominal pain. Laboratory data was obtained and he was noted to have a lipase of 656. A CT scan was not repeated. However, we will order a right upper quadrant ultrasound in the a.m. The patient will be admitted to the medical floor for further evaluation and treatment. PAST MEDICAL HISTORY: 1. Alcohol abuse. 2. Pancreatitis. PREVIOUS SURGICAL HISTORY: Left ankle surgery. SOCIAL HISTORY: The patient has smoked socially in the last year but for the most part has quit smoking. He did smoke around half a pack a day for the last few years. Did drink 8-10 beers a day. Has been quit for around 4 weeks. Denies illicit drug use or abuse. FAMILY HISTORY: Positive for hypertension and coronary artery disease in first- degree relatives. ALLERGIES: Keflex causing an unknown reaction. HOME MEDICATIONS: Carafate 1 g p.o. b.i.d., omeprazole 40 mg p.o. daily. REVIEW OF SYSTEMS: Fourteen point review of systems conducted with the patient. Pertinent positives listed above in the HPI. All other systems reviewed and found to be negative. PHYSICAL EXAMINATION: VITAL SIGNS: Temperature 98.3 degrees, pulse 71, respirations 16, blood pressure 128/68, oxygen saturation 100% on room air. GENERAL: Pleasant 41-year-old male lying in the ER stretcher. No acute distress. Answers all questions appropriately. HEENT: Head is atraumatic, normocephalic. Pupils equal, round, reactive to light. Extraocular eye movement intact. Sclerae is anicteric. Conjunctivae is pink. Oral mucosa is moist. NECK: Supple. No JVD. No thyromegaly. Trachea is midline. No cervical lymphadenopathy. CARDIAC: Regular rhythm. S1-S2 appreciated. No murmurs, gallops, rubs. LUNGS: Clear to auscultation bilaterally. No rhonchi, wheezes or rales. Symmetrical rise and fall with respirations. ABDOMEN: Soft, nondistended. Tender in the epigastric and right upper quadrant region. No rigidity. No rebound tenderness. Bowel sounds hypoactive all 4 quadrants. No pulsatile mass or organomegaly. EXTREMITIES: No clubbing, cyanosis, or edema. GENITOURINARY: The patient voids, otherwise deferred. NEUROLOGICAL: Alert and orient x3. Cranial nerves 2-12 grossly intact. SKIN: Warm, dry, intact. No acute lesions or rash. DIAGNOSTIC DATA: WBC 9.95, hemoglobin 14.5, hematocrit 41.9, platelet count 242 ,000. Sodium 141, potassium 4, chloride 103, carbon dioxide 21, BUN 18, creatinine 0.9, glucose 109. Urine, 50 protein, 60 ketone bodies, otherwise unremarkable. ASSESSMENT AND PLAN: 1. Acute pancreatitis. We will hold patient NPO, continue IV fluid rehydration normal saline, 4 mg IV q.2 hours as needed for pain, Zofran as needed for nausea. 2. Peptic ulcer disease. We will continue Carafate with sips of water as well as Protonix 40 mg p.o. daily. 3. History of alcohol abuse. Patient has apparently been stopped drinking for the past 4 weeks. We will continue to monitor for signs of alcohol withdrawal. 4. Recent history of gastrointestinal bleed. We will recheck a CBC in a.m. to monitor hemoglobin and hematocrit. We will continue PPI and Carafate. 5. Further recommendations per patient clinical course history. Dictated by CAROLINE Baron for Wilmer Hayden MD cc: CAROLINE Baron MD pt examined, agree with above APENOT MTDD
[2016-12-17] MEDS: PROTONIX PO SCH ×2 (05:46→06:39)
[2016-12-17 06:25] LABS: HEMATOCRIT 37.4 % (42.0-52.0); HEMOGLOBIN 12.7 g/dL (14.0-18.0); MCV 91.2 FL (81-99); MPV 9.9 FL (7.4-10.4); RBC 4.1 XMIL (4.7-6.1)
[2016-12-17 07:01] LABS: AGAP 10; AMYLASE 223 U/L (20-200); BUN 14 mg/dL (8-22); CALCIUM 8.5 mg/dL (8.8-10.2); CHLORIDE 104 mmol/L (98-107); COSMO 278; LIPASE 289 U/L (13-60); MAGNESIUM 2.2 mg/dL (1.5-2.7); POTASSIUM 3.6 mmol/L (3.5-5.1); SODIUM 139 mmol/L (136-145); TCO2 25 mmol/L (25-35)
[2016-12-17] MEDS: ZOFRAN IV PRN (07:59)
--- NOTE | 2016-12-17 09:01 | Diag Imaging Result Doc PS360 ---
US GB < RUQ (LIMITED) - 12/17/2016 INDICATION: pancreatitis TECHNIQUE: COMPARISON: CT with contrast 11/23/2016 FINDINGS: The liver is normal. There is ill-defined heterogeneous echotexture at the pancreatic head similar to the prior CT. No drainable fluid collections. Common bile duct is normal measuring 3.5 mm. The gallbladder, spleen, and both kidneys are normal. Aorta, IVC, and main portal vein are patent. IMPRESSION: Heterogeneous echotexture of the pancreatic head consistent with pancreatitis or mass. Masslike pancreatitis is commonly associated with autoimmune pancreatitis. Correlate clinically. Electronically signed by Maximus Dubose 12/17/2016 8:59 AM
[2016-12-17] MEDS ORDERED: SODIUM CHLORIDE 0.9% INJ SCH (09:15)
[2016-12-17] MEDS ORDERED: PROTONIX IV SCH (09:15)
[2016-12-17 09:33] LABS: HDL 25 mg/dL (35-55); LDL 84 mg/dL; TRIGLYCERIDES 149 mg/dL (39-160); VLDL 30 mg/dL
[2016-12-17] MEDS: CARAFATE PO SCH ×4 (09:36→20:39)
[2016-12-17] MEDS: NS 1,000 ML IV SCH ×2 (09:36→18:25)
[2016-12-17] MEDS ORDERED: PROTONIX PO ONE (13:03)
--- NOTE | 2016-12-17 14:30 | PROGRESS NOTE ---
DATE: 12/17/2016 SUBJECTIVE: The patient states that he is still having some abdominal pain, but it has improved slightly. OBJECTIVE: Vital Signs: Temperature 98.4 degrees, blood pressure 118/64, heart rate 62, respirations 18, O2 saturations 99% on room air. General: This is a young male, lying in bed in no acute distress. Head: Normocephalic, atraumatic. Heart: S1, S2. Normal. Regular rate and rhythm. Lungs: Clear to auscultation bilaterally. No wheezes, no rales, no rhonchi. Abdomen: Positive bowel sounds. Soft, nontender, nondistended. Extremities: No edema. No cyanosis. No calf tenderness. Neurologic: The patient is alert and oriented x3. LABS: Sodium 139, potassium 3.6. Hemoglobin 12. Hematocrit 37. Lipase 289. Triglycerides 149. ASSESSMENT/PLAN: 1. Acute pancreatitis. Abdominal ultrasound shows at least enhancement at the head of the pancreas, as well as pancreatitis. We will continue with bowel rest, intravenous fluids, as- needed antiemetics and as-needed pain medication. The patient's lipase is improving. 2. History of alcohol abuse. The patient states that his last drink was about a month ago. 3. Gastrointestinal prophylaxis. Continue on Protonix. 4. Deep vein thrombosis prophylaxis. Will start the patient on sequential compression devices. cc: Rima Richard MD
[2016-12-17] MEDS: DILAUDID IV PRN ×3 (15:15→21:39)
[2016-12-18] MEDS: NS 1,000 ML IV SCH ×4 (01:42→20:36)
[2016-12-18] MEDS: DILAUDID IV PRN ×6 (01:42→22:33)
--- NOTE | 2016-12-18 06:05 | CONSULTATION ---
DATE OF CONSULTATION: 12/17/2016 REFERRING PHYSICIAN: Rima Richard M.D. INDICATION FOR CONSULTATION: 1. Recurrent pancreatitis. 2. History of ETOH abuse. HISTORY OF PRESENT ILLNESS: The patient is a 41-year-old white male, who until recently had no past medical history. He was admitted on 11/23/2016 with acute pancreatitis after consuming 8-10 beers per day for approximately 20 years. He also had melena at the time of admission. His CT scan was remarkable for duodenitis and a duodenal ulcer. He underwent endoscopy and was found to have an actively bleeding duodenal ulcer in the bulb. In addition, he had inflammatory polyps in the distal esophagus, hiatal hernia, gastritis, and duodenitis. Because of the large bleeding vessel in the duodenal bulb, he was transferred to [facility] for definitive care and intervention by Interventional Radiology. The patient states he was subsequently discharged to home and did well. However, approximately 2 days prior to admission, he developed nausea with vomiting and abdominal pain. On admission, he was found to have a lipase is 656. His abdominal ultrasound is remarkable for a heterogeneous echo texture of the pancreatic head , consistent with pancreatitis or mass. It was recommended that he be evaluated for autoimmune pancreatitis given the masslike pancreatitis. He states that overnight, he is feeling significantly better with IV fluids and bowel rest. It should be noted that last admission, he had a lipid profile that was negative for hypertriglyceridemia as a cause of his pancreatitis. IgG subtypes were ordered during the previous admission. However, they were not drawn in light of his acute GI bleeding and subsequent transfer to [facility]. We are asked to participate in his care. PAST MEDICAL HISTORY: 1. Alcohol abuse. 2. Duodenitis. 3. Duodenal ulcer. 4. Acute pancreatitis. 5. Iron-deficiency anemia. PAST SURGICAL HISTORY: Left ankle surgery. SOCIAL HISTORY: The patient smokes about 3-4 cigarettes per month. He previously drank 8-10 beers per day for approximately 20 years. He reports that he stopped drinking on 11/19/2016. He has previously used marijuana in the past, but denies other illicit drug use. FAMILY HISTORY: Positive for hypertension and heart disease. MEDICATION ALLERGIES: Are notable for Keflex. HOME MEDICATIONS: 1. Carafate 1 g 4 times a day. 2. Omeprazole 40 mg daily. REVIEW OF SYSTEMS: Remarkable for interval improvement overnight of the nausea , vomiting, and abdominal pain. PHYSICAL EXAMINATION: General Appearance: On exam, he is in no acute distress. Vital Signs: His blood pressure is 119/77, pulse of 58, respirations 16, temperature of 98.3 degrees. HEENT: Unremarkable. Pulmonary Examination: Lungs are clear to auscultation with normal expiratory effort. Cardiovascular Examination: Reveals regular rate and rhythm with no murmurs, gallops, or rubs. Abdominal Examination: Reveals normoactive bowel sounds. The abdomen is soft, nontender, with no rebound or guarding. Extremities: Bilaterally are negative for cyanosis, clubbing, or edema. OBJECTIVE DATA: Reveals a hemoglobin of 12.7 with hematocrit of 37.4 and a white count of 8.13. He has 183,000 platelets. Sodium is 139, potassium 3.6, chloride 104, CO2 of 25 , BUN 14, creatinine 0.7, with a glucose of 101. Calcium is 8.5, magnesium 2.2, triglyceride 149, cholesterol 139, amylase 223, and lipase of 289. This is an interval improvement from admission on 12/16/2016 of an amylase of 302 and a lipase of 656. IMPRESSION: 1. Acute pancreatitis. 2. History of alcohol abuse. 3. Gastroduodenitis. 4. Large duodenal ulcer with a visible vessel last admission. RECOMMENDATION: 1. Continue bowel rest and supportive care for treatment in pancreatitis. 2. I will order an IgG subclass, KIT, and anti plasminogen binding protein to assess for autoimmune pancreatitis. 3. He should complete his 12 week course of Carafate. 4. While he is in the hospital, it is reasonable to place him on omeprazole. Once he is able to tolerate liquids, I would transition him to oral therapy. 5. Additional recommendations to follow based on his clinical course. 6. Dr. Baltazar Kyle is covering our service until December 23. Please feel free to contact him with any additional questions. cc: MD Erin Veras MD MTDD
[2016-12-18 06:50] LABS: MANUAL DIFF NEEDED? NO
[2016-12-18 06:55] LABS: BASO% 0.2 % (0.0-0.8); EOS# 0.33 X1000 (0.0-0.7); EOS% 6.2 % (0.0-10.0); HEMATOCRIT 39.7 % (42.0-52.0); HEMOGLOBIN 13.6 g/dL (14.0-18.0); LYMPH# 1.56 X1000 (1.2-3.4); LYMPH% 29.2 % (20.5-51.1); MCH 31.1 PG (27-31); MCHC 34.3 g/dL (33-37); MCV 90.8 FL (81-99); MONO# 0.31 X1000 (0.11-0.59); MONO% 5.8 % (1.7-9.3); MPV 9.8 FL (7.4-10.4); NEUT% 58.6 % (42.2-75.2); PLT 208 X1000 (130-400); RBC 4.37 XMIL (4.7-6.1)
[2016-12-18 07:13] LABS: AGAP 14; ALBUMIN 4.2 g/dL (3.5-5.0); ALKALINE PHOSPHATASE 66 U/L (32-122); BUN 10 mg/dL (8-22); CALCIUM 8.5 mg/dL (8.8-10.2); CHLORIDE 102 mmol/L (98-107); COSMO 279; GOT 17 U/L (10-34); GPT 21 U/L (10-44); POTASSIUM 3.6 mmol/L (3.5-5.1); SODIUM 141 mmol/L (136-145); TCO2 25 mmol/L (25-35); TOTAL BILIRUBIN 0.48 mg/dL (0.20-1.00)
[2016-12-18] MEDS: CARAFATE PO SCH ×4 (09:44→20:29)
[2016-12-18] MEDS: PROTONIX PO SCH (10:04)
--- NOTE | 2016-12-18 13:42 | PROGRESS NOTE ---
DATE: 12/18/2016 SUBJECTIVE: Patient states he is feeling a little better today. He is still having abdominal pain but it has improved. He is tolerating ice chips. OBJECTIVE: Vital Signs: Temperature 98.2 degrees, pulse 59, respirations 14, blood pressure 119/71. Generally: Patient is awake, alert, no acute distress. HEENT: Normocephalic, atraumatic. Pupils equal, round, reactive to light. Sclerae nonicteric. Lungs: Sound clear bilaterally. Abdomen: Soft. Some mild tenderness in the epigastric area. DIAGNOSTIC RESULTS: Laboratory, hematology: White count 5.35, hemoglobin 13.6, hematocrit 39.7, MCV 90.8, platelets 208,000. Chemistry: Sodium 141, potassium 3.6, chloride 102, CO2 25, BUN 10, creatinine 0.7, glucose 81, total bilirubin 0.48, AST 17, ALT 21, alkaline phosphatase 66. Amylase and lipase on 12/17/2016 were 223 amylase and 289 lipase. Repeat lipase today has increased. It is 510. ASSESSMENT AND PLAN: Pancreatitis. We will repeat amylase and lipase tomorrow. Continue ice chips for now. Continue symptomatic treatment and supportive care. Continue IV fluids. Has a previous diagnosis of bleeding duodenal ulcer at prior admission with EGD done on November 26 and the patient was transferred to [facility] for Radiology treatment of the bleeding ulcer. Hemoglobin and hematocrit are stable with no signs of active bleeding. We will continue to follow. Further plans will be made as needed. Dictated by CAROLINE Sarmiento for Baltazar Kyle MD cc: CAROLINE Talbert MD
--- NOTE | 2016-12-18 15:28 | PROGRESS NOTE ---
DATE: 12/18/2016 SUBJECTIVE: The patient is resting comfortably in bed. He complains of abdominal pain. No nausea noted overnight. OBJECTIVE: Vital signs: Temperature 97 degrees, blood pressure 126/73, heart rate 67, respirations 18, O2 saturations 99% on room air. General: This is a middle-aged male, lying in bed, in no acute distress. Head: Normocephalic, atraumatic. Heart: S1, S2. Normal. Regular rate and rhythm. Lungs: Clear to auscultation bilaterally. No wheezing. No rales. No rhonchi. Abdomen: Positive bowel sounds. Soft, nontender, nondistended. Extremities: No edema. No cyanosis. No calf tenderness. Neurologic: The patient is alert and oriented x3. LABS: White blood cell count 5.3, hemoglobin 13, hematocrit 39, platelets 208,000. Sodium 141, potassium 3.6, chloride 102, CO2 25, BUN 10, creatinine 0.7, glucose 81. Calcium 8.5, lipase 512. ASSESSMENT AND PLAN: 1. Acute pancreatitis. Continue with IV fluids, p.r.n. antiemetics and p.r.n. Dilaudid. GI is following. 2. Deep vein thrombosis prophylaxis. Continue with SCDs. 3. Gastrointestinal prophylaxis. Continue with Protonix. cc: Rima Richard MD
[2016-12-19] MEDS: DILAUDID IV PRN ×5 (04:01→20:29)
[2016-12-19] MEDS: PROTONIX PO SCH ×2 (05:39→06:03)
[2016-12-19] MEDS: NS 1,000 ML IV SCH ×2 (05:40→16:39)
[2016-12-19] MEDS: ZOFRAN IV PRN ×3 (09:09→20:28)
[2016-12-19] MEDS: CARAFATE PO SCH ×4 (09:09→20:29)
[2016-12-19 10:24] LABS: MANUAL DIFF NEEDED? NO
[2016-12-19 10:26] LABS: BASO% 0.2 % (0.0-0.8); EOS% 4.7 % (0.0-10.0); HEMATOCRIT 38.7 % (42.0-52.0); HEMOGLOBIN 13.4 g/dL (14.0-18.0); LYMPH# 1.18 X1000 (1.2-3.4); LYMPH% 27.8 % (20.5-51.1); MCH 30.7 PG (27-31); MCHC 34.6 g/dL (33-37); MCV 88.6 FL (81-99); MONO# 0.27 X1000 (0.11-0.59); MONO% 6.4 % (1.7-9.3); MPV 9.7 FL (7.4-10.4); NEUT% 60.9 % (42.2-75.2); PLT 188 X1000 (130-400); RBC 4.37 XMIL (4.7-6.1)
--- NOTE | 2016-12-19 11:40 | PROGRESS NOTE ---
DATE: 12/19/2016 SUBJECTIVE: Patient states he is still having abdominal pain. OBJECTIVE: Vital Signs: Temperature 98.2 degrees, pulse 65, respirations 16, blood pressure 121/71. LABORATORY: Hematology from 12/18/2016: WBC 5.35, hemoglobin 13.6, hematocrit 39.7, platelets 208,000. Chemistry: Sodium 141, potassium 3.6, chloride 102, CO2 of 25. BUN 10, creatinine 0.7, glucose 81. Total bilirubin 0.48. AST 17, ALT 21, alkaline phosphatase 66, lipase 510. 12/19/2016 lab results have not been reported as of yet. ASSESSMENT AND PLAN: 1. Acute pancreatitis. 2. Abdominal pain. 3. Nausea. PLAN: Continue symptomatic treatment. Continue IV fluids as needed medication for nausea and pain. Awaiting lab results. Will advanced diet once able. We will continue to follow. Dictated by CAROLINE Sarmiento for Baltazar Kyle MD cc: CAROLINE Talbert MD
--- NOTE | 2016-12-19 14:37 | PROGRESS NOTE ---
DATE: 12/19/2016 SUBJECTIVE: The patient states that he feels a lot better. His lipase is also improved. OBJECTIVE: Vital Signs: Temperature 98 degrees, blood pressure 121/71, heart rate 65, respirations 16, O2 saturation 100% on room air. General: This is a middle-aged male, lying in bed in no acute distress. Head: Normocephalic, atraumatic. Heart: S1 and S2 normal. Regular rate and rhythm. Lungs: Clear to auscultation bilaterally. No wheezing. No rales. No rhonchi. Abdomen: Positive bowel sounds. Soft, nontender, nondistended. Extremities: No edema. No cyanosis. No calf tenderness. Neurologic: The patient is alert and oriented x3. LABORATORY: Lipase 76. White blood cell count 4.2, hemoglobin 13, hematocrit 38, and platelets 188,000. ASSESSMENT AND PLAN: 1. Acute pancreatitis. Slowly improving. The patient has been started on a clear liquid diet. Gastroenterology is following. 2. History of alcohol abuse. The patient states that he has not had anything to drink in over a month. 3. Deep vein thrombosis prophylaxis. Continue with SCDs. cc: Rima Richard MD
[2016-12-20] MEDS: NS 1,000 ML IV SCH ×4 (00:49→17:19)
[2016-12-20] MEDS: PROTONIX PO SCH (06:30)
[2016-12-20] MEDS: DILAUDID IV PRN ×5 (08:12→22:21)
[2016-12-20] MEDS: ZOFRAN IV PRN ×4 (08:12→22:21)
[2016-12-20] MEDS: CARAFATE PO SCH ×4 (08:13→20:49)
--- NOTE | 2016-12-20 15:19 | Diag Imaging Result Doc PS360 ---
EXAM: ABDOMEN/PELVIS W/O CONTRAST HISTORY: pancreatitis TECHNIQUE: CT urogram without contrast COMMENT: There is atelectasis in both costophrenic angles which was not present on 11/23/2016. The stomach is distended. There is thickening of the wall of the duodenal bulb and post bulbar duodenum. There is considerable inflammation and swelling in and around the pancreatic head. This appears worse than on the previous examination, although the lack of IV contrast in the current examination makes direct comparison difficult. No significant adenopathy is present. There is no evidence of cholelithiasis or nephrolithiasis is no evidence of hydronephrosis is present. The spleen and adrenal glands are not enlarged. There is no evidence of ureterolithiasis. The urinary bladder is within normal limits. There is no evidence of bowel obstruction. There is hyperdense stool throughout much of the colon. There is a small amount of fluid in the rectovesical pouch. IMPRESSION: Pancreatitis/duodenitis. Electronically signed by Yung Gomez 12/20/2016 3:17 PM
[2016-12-20] MEDS: LEVAQUIN 500 MG/D5W 500 MG/100 ML IVPB IV SCH (17:20)
--- NOTE | 2016-12-20 17:24 | PROGRESS NOTE ---
DATE: 12/20/2016 SUBJECTIVE: The patient states that he did not tolerate his clear liquid diet yesterday. Shortly after eating he started experiencing sharp epigastric pain. OBJECTIVE: Vital Signs: Temperature 98.2 degrees, blood pressure 148/84, heart rate 58, respirations 16, O2 saturations 100% on room air. General: This is a middle-aged male lying in bed in no acute distress. Head: Normocephalic, atraumatic. Heart: S1, S2. Normal. Bradycardic. Lungs: Clear to auscultation bilaterally. No wheezing. No rales. No rhonchi. Abdomen: Positive bowel sounds. Soft. Positive for epigastric tenderness. Extremities: No edema. No cyanosis. No calf tenderness. Neuro: The patient is alert and oriented x3. No focal neurologic deficits noted. LABS: Lipase 221. CT of the abdomen and pelvis shows inflammation and swelling in and around the pancreatic head which appears worse than on the previous examination as well as duodenitis. ASSESSMENT AND PLAN: 1. Acute pancreatitis. The patient's lipase increased today to 221 up from 76. Will make the patient n.p.o. and continue with IV fluids, p.r.n. antiemetics and p.r.n. pain medication. GI is following. 2. Duodenitis. Will start the patient on Levaquin. 3. Gastrointestinal prophylaxis. Continue on Protonix. 4. Deep vein thrombosis prophylaxis. Continue on Lovenox. cc: Rima Richard MD
[2016-12-21] MEDS: NS 1,000 ML IV SCH ×3 (02:23→20:36)
[2016-12-21] MEDS: ZOFRAN IV PRN (06:34)
[2016-12-21] MEDS: PROTONIX PO SCH (06:34)
[2016-12-21] MEDS: DILAUDID IV PRN ×5 (06:34→20:36)
[2016-12-21 07:08] LABS: AGAP 11; ALBUMIN 3.6 g/dL (3.5-5.0); ALKALINE PHOSPHATASE 56 U/L (32-122); BUN 5 mg/dL (8-22); CALCIUM 8.7 mg/dL (8.8-10.2); CHLORIDE 105 mmol/L (98-107); COSMO 282; GOT 13 U/L (10-34); GPT 16 U/L (10-44); LIPASE 119 U/L (13-60); POTASSIUM 3.7 mmol/L (3.5-5.1); SODIUM 143 mmol/L (136-145); TCO2 27 mmol/L (25-35); TOTAL BILIRUBIN 0.42 mg/dL (0.20-1.00); TOTAL PROTEIN 5.8 g/dL (6.3-8.3)
[2016-12-21] MEDS: CARAFATE PO SCH ×5 (09:28→22:14)
--- NOTE | 2016-12-21 13:26 | PROGRESS NOTE ---
DATE: 12/21/[address] Baltazar Kyle, while Dr. Pool is out of town. SUBJECTIVE: Patient states he is still having some abdominal pain. He is taking pain medication as needed. He states he tried a full-liquid diet yesterday, and did not tolerate it well. Repeat lipase yesterday was 221. Today lipase is 119. OBJECTIVE: Vital Signs: Temperature 98.2 degrees, pulse 67, respirations 16, blood pressure 116/72. Generally: Patient is awake, alert, no acute distress. HEENT: Normocephalic, atraumatic. Pupils equal, round, reactive to light. Sclerae nonicteric. Abdomen: Soft, mild tenderness. Positive bowel sounds. Lungs: Sounds clear bilaterally. Cardiovascular: Regular rate and rhythm. LABORATORY: Chemistry: Sodium 143, potassium 3.7, chloride 105, CO2 27, BUN 5, creatinine 0.7, glucose 99, total bilirubin 0.42, AST 13, ALT 16, alkaline phosphatase 56. Amylase was not done today. Lipase 119. ASSESSMENT AND PLAN: 1. Acute pancreatitis. 2. Duodenitis. 3. Abdominal pain. 4. History of alcohol use. PLAN: Continue symptomatic treatment for pain and nausea control. Draw amylase from the blood in lab. Lipase was 119 today. Depending on findings, I may start sips of clear liquids. We will continue to follow and be available until Dr. Pool returns on Wednesday. Dictated by CAROLINE Sarmiento for Baltazar Kyle MD cc: CAROLINE Talbert MD
--- NOTE | 2016-12-21 15:45 | PROGRESS NOTE ---
DATE: 12/21/2016 SUBJECTIVE: The patient is resting comfortably in bed. He does complain of occasional abdominal pain and he has been requesting the pain medication as needed. OBJECTIVE: Vital Signs: Temperature 98.2 degrees, blood pressure 116/72, heart rate 67, respirations 16, O2 saturation 100% on room air. General: This is a middle-aged male, lying in bed, in no acute distress. Head: Normocephalic, atraumatic. Heart: S1, S2. Normal. Regular rate and rhythm. Lungs: Clear to auscultation bilaterally. Abdomen: Positive bowel sounds. Soft, nontender, nondistended. Extremities: No edema. No cyanosis. No calf tenderness. Neurologic: The patient is alert and oriented x3. LABORATORY: Lipase is 119. ASSESSMENT AND PLAN: 1. Acute pancreatitis. Continue with bowel rest. The patient's lipase is slowly improving. Further management as per the furnace cooler. 2. Gastrointestinal prophylaxis. Continue on Protonix. 3. History of peptic ulcer disease. Continue on Carafate. 4. Deep vein thrombosis prophylaxis. We will start the patient on Lovenox. cc: Rima Richard MD
[2016-12-21] MEDS: LOVENOX SUBQ SCH (16:47)
[2016-12-21] MEDS: LEVAQUIN 500 MG/D5W 500 MG/100 ML IVPB IV SCH (16:47)
[2016-12-22 06:04] LABS: MANUAL DIFF NEEDED? NO
[2016-12-22] MEDS: PROTONIX PO SCH (06:10)
[2016-12-22 06:13] LABS: BASO% 0.4 % (0.0-0.8); EOS# 0.34 X1000 (0.0-0.7); HEMATOCRIT 41.8 % (42.0-52.0); HEMOGLOBIN 14.5 g/dL (14.0-18.0); LYMPH# 1.62 X1000 (1.2-3.4); LYMPH% 28.7 % (20.5-51.1); MCH 30.6 PG (27-31); MCHC 34.7 g/dL (33-37); MCV 88.2 FL (81-99); MONO% 7.1 % (1.7-9.3); NEUT% 57.8 % (42.2-75.2); PLT 227 X1000 (130-400); RBC 4.74 XMIL (4.7-6.1)
[2016-12-22 06:47] LABS: AGAP 14; ALBUMIN 4.2 g/dL (3.5-5.0); ALKALINE PHOSPHATASE 62 U/L (32-122); AMYLASE 83 U/L (20-200); BUN 6 mg/dL (8-22); CHLORIDE 102 mmol/L (98-107); COSMO 280; GOT 18 U/L (10-34); GPT 18 U/L (10-44); LIPASE 100 U/L (13-60); POTASSIUM 3.8 mmol/L (3.5-5.1); SODIUM 142 mmol/L (136-145); TCO2 26 mmol/L (25-35); TOTAL BILIRUBIN 0.47 mg/dL (0.20-1.00); TOTAL PROTEIN 7.1 g/dL (6.3-8.3)
[2016-12-22] MEDS: CARAFATE PO SCH ×5 (08:31→20:33)
[2016-12-22] MEDS: DILAUDID IV PRN ×5 (08:31→22:21)
[2016-12-22] MEDS: NS 1,000 ML IV SCH ×4 (08:36→22:24)
--- NOTE | 2016-12-22 12:08 | PROGRESS NOTE ---
DATE: 12/22/2016 SUBJECTIVE: The patient states that he is still having some mild epigastric pain, but wants to try clear liquids today. OBJECTIVE: Vital Signs: Temperature 98 degrees, blood pressure 146/74, heart rate 64, respirations 14, O2 saturations 99% on room air. General: This is a young male, lying in bed in no acute distress. Head: Normocephalic, atraumatic. Heart: S1, S2. Normal. Regular rate and rhythm. Lungs: Clear to auscultation bilaterally. No wheezes, no rales. No rhonchi. Abdomen: Positive bowel sounds. Soft. Positive for epigastric tenderness. Extremities: No edema. No cyanosis. No calf tenderness. Neurologic: The patient is alert and oriented x3. LABS: Sodium 142, potassium 3.8, chloride 102, CO2 26, BUN 6, creatinine 0.9, glucose 86, amylase 83, lipase 100. ASSESSMENT AND PLAN: 1. Acute pancreatitis. We will try the patient on a clear liquid diet. The lipase is slowly trending downward. 2. History of alcohol abuse. Aware. 3. Deep vein thrombosis prophylaxis. Continue on Lovenox. cc: Rima Richard MD
[2016-12-22] MEDS: LOVENOX SUBQ SCH (15:53)
[2016-12-22] MEDS: LEVAQUIN 500 MG/D5W 500 MG/100 ML IVPB IV SCH (17:07)
--- NOTE | 2016-12-22 17:35 | PROGRESS NOTE ---
DATE: 12/22/2016 SUBJECTIVE: Mr. Mcfarland is sitting up in his bed. He is conscious, alert, appears to be in no distress. He tells me that his pain has almost gone. He had a bowel movement today which was mostly loose. He denies any blood or mucus in his stool. He has been tolerating clear liquids well and he is hungry. He wants to eat now. OBJECTIVE: Vitals: Today temperature is 98.2, pulse 83, breathing at 20, blood pressure 138/58 mmHg. Abdomen: Flat, soft, nontender. Bowel sounds are audible. Extremities: No pedal edema noted. LABS: Reviewed, which showed amylase of 83, and lipase is 100. Transaminases were normal. ASSESSMENT AND PLAN: 1. Acute pancreatitis, appears to be resolving. 2. Duodenitis, abdominal pain resolved. 3. History of alcohol abuse. RECOMMENDATION: I will start him on a full liquid diet and advance as tolerated. In the meantime, will continue his symptomatic treatment and Dr. Pool will be available tomorrow to tile picker the case. cc: Baltazar Kyle MD
[2016-12-23] MEDS: DILAUDID IV PRN ×3 (01:54→11:12)
[2016-12-23] MEDS: PROTONIX PO SCH ×2 (05:36→06:31)
[2016-12-23 05:56] LABS: MANUAL DIFF NEEDED? NO
[2016-12-23 06:08] LABS: BASO% 0.4 % (0.0-0.8); EOS# 0.27 X1000 (0.0-0.7); EOS% 5.7 % (0.0-10.0); HEMATOCRIT 38.7 % (42.0-52.0); HEMOGLOBIN 13.5 g/dL (14.0-18.0); LYMPH# 1.93 X1000 (1.2-3.4); LYMPH% 41.1 % (20.5-51.1); MCH 30.7 PG (27-31); MCHC 34.9 g/dL (33-37); MONO# 0.42 X1000 (0.11-0.59); MONO% 8.9 % (1.7-9.3); MPV 10.1 FL (7.4-10.4); NEUT% 43.9 % (42.2-75.2); PLT 212 X1000 (130-400)
[2016-12-23] MEDS: NS 1,000 ML IV SCH ×2 (06:31→11:13)
[2016-12-23 06:33] LABS: AGAP 9; ALBUMIN 3.6 g/dL (3.5-5.0); ALKALINE PHOSPHATASE 52 U/L (32-122); BUN 5 mg/dL (8-22); CALCIUM 8.7 mg/dL (8.8-10.2); CHLORIDE 106 mmol/L (98-107); COSMO 286; GOT 14 U/L (10-34); GPT 15 U/L (10-44); LIPASE 66 U/L (13-60); POTASSIUM 3.6 mmol/L (3.5-5.1); SODIUM 145 mmol/L (136-145); TCO2 30 mmol/L (25-35)
[2016-12-23] MEDS: CARAFATE PO SCH ×2 (08:22→12:41)
[2016-12-23 15:18] VITALS: BP 148/58
--- NOTE | 2016-12-23 16:36 | DISCHARGE SUMMARY ---
ADMISSION DATE: 12/16/2016 DISCHARGE DATE: 12/23/2016 FINAL DISCHARGE DIAGNOSIS: Acute pancreatitis. CONSULTATIONS REQUESTED DURING THIS HOSPITAL STAY: GI consultation with Dr. Pool. IMAGING PERFORMED DURING THIS HOSPITAL STAY: 1. CT of the abdomen and pelvis which revealed inflammation and swelling in and around the pancreatic head and duodenitis. 2. Abdominal ultrasound, which revealed pancreatitis. HOSPITAL COURSE: Mr. Mcfarland is a 41-year-old male with a history of alcohol abuse and duodenal ulcer who presented to the ER with abdominal pain. On admission, the patient was noted to have a lipase of 656 and an abdominal ultrasound that revealed pancreatitis. The patient was admitted to the hospitalist service and GI was consulted. The patient was placed on bowel rest, IV fluids, p.r.n. antiemetics and p.r.n. pain medication. Slowly over the course of the hospitalization with bowel rest the patient's lipase slowly normalized. Initially, the patient was started on a clear liquid diet which he did not tolerate so he was made NPO again. With continued bowel rest the patient's abdominal pain improved and he was started on a full liquid diet which he tolerated without any difficulty. On the day of discharge, the patient was noted to have a lipase of 66. DISCHARGE MEDICATIONS: 1. Prilosec 40 mg p.o. daily. 2. Carafate 1 g p.o. 4 times a day. DISCHARGE DIET: [place] diet. ACTIVITY: As tolerated. FOLLOWUP INSTRUCTIONS: The patient will need to follow up with Dr. Pool in 2-3 weeks. The patient was again reminded to continue with alcohol cessation. cc: Rima Richard MD
== END 2016-12-23 15:16 | disposition home or self-care (01) ==
LOC: ED 17:03 → SUATTDRO 23:01 → 4N 23:01
PROVIDERS: ATTEND Internal Medicine